=== PATIENT | female | born 1990 | race Asian ===

== ENCOUNTER 2025-06-11 15:09 | Emergency (ER) | payer BC, OTHER, SELFPAY ==
[2025-06-11 15:10] VITALS: BP 137/87; PULSE 93; RESP 18; TEMP 36.5; O2SAT 98; BMI 26.6
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
[2025-06-11 16:51] VITALS: BP 124/67; PULSE 75; RESP 16; TEMP 36.7; O2SAT 100
== END 2025-06-11 16:52 | disposition home or self-care (01) ==
PROVIDERS: Emergency Provider Emergency Medicine; Visit Provider Emergency Medicine
DX: S16.1XXA Strain of muscle, fascia and tendon at neck level, initial encounter (principal); R20.2 Paresthesia of skin; V43.52XA Car driver injured in collision with other type car in traffic accident, initial encounter
CPT/HCPCS: 72040; 99282